=== PATIENT | male | born 1930 | race Caucasian/White ===

== ENCOUNTER 2016-06-23 19:00 | Emergency (ER) | payer MEDICARE, BC ==
[~2016-06-23] VITALS: Ht 172.7 cm; Wt 96.8 kg
[~2016-06-23 19:00] MED LIST: AMLO5TAB2 PO; ASPI81TA2 PO; BP MED; CARV6.25 PO; CETI10CA19 PO; CHOL200014 PO; CLOT15CR4 TOP; COLC0.6T70 PO; MENT1LOZ3; MIRA50TA PO; OMEP20CA10 PO; OXYB5TAB10 PO; POLY17PO6 PO; SENN-29 PO; SUCR1TAB20 PO; TRIA15OI6 TOP; [UNRECOGNIZED DRUG - CODE] TOP; amlodipine PO
--- OUTSIDE RECORDS SUMMARY | 2016-06-23 19:05 | XMS REPORT | Continuity of Care Document ---
Author Author [facility] Organization [facility] Address Unknown Phone Unavailable Allergies Active Description Code Type Severity Reaction Onset Reported/Identified Relationship to Patient Clinical Status Yes allopurinol derivatives NKMA Medium AZEGxwEmLzUcjbvKwKgAAg AZEGxwE Yes allopurinol derivatives NKMA Medium AZEGxwEmLzUcjbvKwKgAAg AZEGxwE Yes sulfa drugs NKMA N/A N/A 08/12/2013 Yes sulfa drugs NKMA N/A N/A 08/12/2013 Yes allopurinol derivatives NKMA Medium MVUHacTeYpIbco5jlMwKOk AZEGxwE 2013 Yes allopurinol derivatives NKMA Medium CVIBgaFaQlNkfx7sbHdJWo AZEGxwE 2013 Yes thiazide diuretics NKMA N/A [id number] 02/03/2014 Yes thiazide diuretics NKMA N/A [id number] 02/03/2014 Yes spironolactone NKMA N/A red skin and itching 02/15/2014 Yes spironolactone NKMA N/A red skin and itching 02/15/2014 Yes penicillin NKMA N/A [id number] 08/21/2014 Yes penicillin NKMA N/A [id number] 08/21/2014 Medications Medication Packaging Start Date Stop Date Route Dosage Sig Lactated Ringers Injection(Lactated Ringers Injection 1, 000 mL) 1,000 mL 201603/20/2016 IV 20 mL/hr, IV metoclopramide(Reglan) 1 mL 03/20/2016 03/20/2016 IV Push 5 mg 5 mg=1 mL, IV Push, q6hr, PRN: Nausea or Vomiting HYDROcodone-acetaminophen([place] 7.5 mg-325 mg oral tablet) 1 tabs 03/20/2016 03/20/2016 Oral 1 tabs, Oral, q4hr, PRN: Pain Moderate (4-6) morphine(morphine) 2 mL 03/20/2016 03/20/2016 IV Push 4 mg 4 mg= 2 mL, IV Push, q1hr, PRN: Pain Severe (7-10) nalOXone(Narcan) 1 mL 03/20/2016 03/20/2016 IV Push 0.4 mg 0.4 mg= 1 mL, IV Push, Once, PRN: Sedation ondansetron(Zofran) 2 mL 03/20/2016 03/20/2016 IV Push 4 mg 4 mg= 2 mL, IV Push, q6hr, PRN: Nausea or Vomiting Problems Date Dx Coded Attending Type Code Diagnosis Diagnosed By 08/22/2014 Isaac Vyas Final 278.00 OBESITY, UNSPECIFIED 08/22/2014 Isaac Vyas Final 338.29 Other chronic pain 08/22/2014 Isaac Vyas Final 401.9 UNSPECIFIED ESSENTIAL HYPERTENSION 08/22/2014 Isaac Vyas Final 428.0 CONGESTIVE HEART FAILURE, UNSPECIFIED 08/22/2014 Isaac Vyas Final 530.81 ESOPHAGEAL REFLUX 08/22/2014 Isaac Vyas Final 564.00 CONSTIPATION, UNSPECIFIED 08/22/2014 Isaac Vyas Reason 592.1 CALCULUS OF URETER 08/22/2014 Isaac Vyas Final 596.89 Other Specified Disorders of Bladder 08/22/2014 Isaac Vyas Final 715.36 OSTEOARTHROSIS, LOCALIZED, NOT SPECIFIED WHETHER PRIMARY OR SECONDARY, INVO 08/22/2014 Isaac Vyas Final 724.2 LUMBAGO 08/22/2014 Isaac Vyas Final V85.31 Body Mass Index 31.0-31.9, adult 08/22/2014 Isaac Vyas Reason 592.1 CALCULUS OF URETER 03/03/2015 Isaac Vyas Final D63.1 Anemia in chronic kidney disease 03/03/2015 Isaac Vyas Final E66.9 Obesity, unspecified 03/03/2015 Isaac Vyas Final E78.5 Hyperlipidemia, unspecified 03/03/2015 Isaac Vyas Final F17.220 Nicotine dependence, chewing tobacco , uncomplicated 03/03/2015 Isaac Vyas Final G89.29 Other chronic pain 03/03/2015 Isaac Vyas Final 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 03/03/2015 Isaac Vyas Final I50.9 Heart failure, unspecified 03/03/2015 Isaac Vyas Final K21.9 Gastro-esophageal reflux disease without esophagitis 03/03/2015 Isaac Vyas Final K59.00 Constipation, unspecified 03/03/2015 Isaac Vyas Final M54.5 Low back pain 03/03/2015 Isaac Vyas Final 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 , not elsewhere classified 03/03/2015 Isaac Vyas Reason N13.2 Hydronephrosis with renal and ureteral calculous obstruction 03/03/2015 Isaac Vyas Final N18.3 Chronic kidney disease, stage 3 ( moderate) 03/03/2015 Isaac Vyas Final Z68.34 Body mass index (BMI) 34.0-34.9, adult 03/03/2015 Isaac Vyas Final Z87.442 Personal history of urinary calculi 03/24/2016 Isaac Vyas Final F17.220 Nicotine dependence, chewing tobacco , uncomplicated 03/24/2016 Isaac Vyas Final 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 03/24/2016 Isaac Vyas Final I50.9 Heart failure, unspecified 03/24/2016 Isaac Vyas Final K21.9 Gastro-esophageal reflux disease without esophagitis 03/24/2016 Isaac Vyas Reason N13.5 Crossing vessel and stricture of ureter without hydronephrosis 03/24/2016 Isaac Vyas Final N18.3 Chronic kidney disease, stage 3 ( moderate) 03/24/2016 Isaac Vyas Final R80.8 Other proteinuria 03/24/2016 Isaac Vyas Final Z46.6 Encounter for fitting and adjustment of urinary device 03/24/2016 Isaac Vyas Final Z87.442 Personal history of urinary calculi Procedures Code Description [place] [address] Unlisted procedure, urinary system 08/21/2014 97387 Cystourethroscopy, with ureteroscopy and/or pyeloscopy; diagnostic.. 02/22/2015 68995 Cystourethroscopy, with insertion of indwelling ureteral stent (eg, Lopez 03/20/2016 Results Encounters ACCT No. Visit Date/Time Discharge Status Pt. Type Provider Facility Loc./Unit Complaint [id number] 03/20/2016 05:34:00 2016 14:29:00 DIS Outpatient Isaac Vyas [facility] on Isai AMINJ JACU Left uretheral stricture [id number] 02/22/2015 05:15:00 2014 11:45:00 DIS Outpatient Isaac Vyas [facility] on Isai J JACU Left ureteral stone [id number] 08/21/2014 05:12:00 2014 12:20:00 DIS Outpatient Isaac Vyas [facility] on Isai J JACU kidney stone [id number] 03/21/2016 05:16:13 Document Registration
[2016-06-23 19:07] VITALS: Ht 172.7 cm; Wt 96.8 kg
--- NOTE | 2016-06-23 21:07 | ERPDOC ---
Departure Disposition Decision Date: June 23, 2016 Disposition Decision Time: 23:11 Disposition: 01 DISCHARGED HOME, SELF-CARE Impression Impression Impression: Primary Impression: Viral URI with cough Additional Impression: UTI (urinary tract infection) Urinary tract infection type: acute cystitis Hematuria presence: with hematuria Qualified Codes: N30.01 - Acute cystitis with hematuria Severity: Moderate Condition: Stable Seen By: Mid-level only Referrals: LIDYA SERRANO DO (PCP) IRVING CONTRERAS MD (Family) Patient Instructions: Upper Respiratory Infection (ED), Urinary Tract Infection in Men (ED) Problems/Meds/Labs Reviewed?: Yes Medications reviewed and manag: Yes Additional Instructions: Your CXR did not show a pneumonia. Your CBC indicates a viral illness. Urine indicates a urinary tract infection. Take Levaquin 250mg once daily for 9 days for urinary tract infection. You may take benzonatate 200mg, take 1 tab, three times daily for cough. Follow treatment plan. Follow with your PCP for re-evaluation in next week, sooner if worsting symptoms. Follow up care ordered?: Yes Mental Status: Alert, Oriented Scripts Levofloxacin (Levaquin) 250 Mg Tablet 1 TAB-CAP PO DAILY for 9 Days Prov: JUAN LOPEZ 06/23/16 Benzonatate (Benzonatate) 200 Mg Capsule 1 CAP PO TID Y for COUGH for 10 Days, #30 CAP DO NOT BITE, CHEW, OR CRUSH Prov: JUAN LOPEZ [employer] 06/23/16 HPI - Cough/URI General Chief Complaint: Cough,Fever,Flu,URI Stated Complaint: COUGH, CONGESTION,DIFF BREATHING Time Seen by Provider: 21:03 Source: patient HPI - Cough/URI Initial Comments 86 YO M sent from [facility] for evaluation of cough and tachypnea. Patient says he started coughing this morning. Has coughed up some phlegm earlier today (does not know what color). Has continued to cough so went to [facility] this evening. [facility] called and said patient had RR of 32 for them so sent him to ED for further evaluation. Patient denies fever, chills, CP, SOA. Patient says that he has been urinating more frequency today which could be due to coughing so much. Associated Symptoms: cough, DENIES: chest pain/soreness, dizziness, earache, facial pain, fever/chills, lightheadedness, muscle aches, shortness of breath Allergies: Coded Allergies: Sulfa (Sulfonamide Antibiotics) (Verified Allergy, Mild, 06/23/16) Thiazides (Verified Allergy, Mild, RASH, 06/23/16) allopurinol (Verified Allergy, Mild, RASH, 06/23/16) spironolactone (Verified Allergy, Mild, ITCHING, 06/23/16) Past History Patient Surgical History EGD with colonoscopy 07/24/2014 at [facility] Tonsillectomy TURP Lithotripsy with ureteral stents Past Medical History Metabolic: hypercholesterolemia, hypertension Cardiac: CHF, DENIES: angina Respiratory: DENIES: COPD, asthma GI: constipation Male: BPH, UTI, kidney stones Neurological: DENIES: CVA, TIA, seizures Musculoskeletal: back pain, osteoarthritis Hematologic: anemia Psychological: DENIES: depression Surgical History General: EGD, colonoscopy, tonsils Reproductive/: TURP, other Family History Family PMH: FOUND: [place], cancer, other (noncontributory) Vaccines Hx Influenza Vaccination: Yes (2013) Hx Pneumococcal Vaccination: Yes (12/04/05) Hx Tetanus Diptheria: No (UNKNOWN) Social History Substance Use Type: does not use Alcohol Intake: none Current Occupational Status: retired Review of Systems Constitutional Constitutional: DENIES: chills, dizziness, fever, weakness Eyes General: DENIES: erythema, exudate Lids/Accessories: DENIES: erythema, swelling ENMT Ears: DENIES: pain Hearing: DENIES: hearing loss Sinuses: congestion, rhinorrhea Mouth/Throat: DENIES: sore throat Cardiovascular Cardiac: DENIES: chest pain, murmur Rhythm/Rate: DENIES: palpitations Pulmonary Respiratory: cough, see HPI, sputum, DENIES: dyspnea GI Upper Abdomen: DENIES: nausea, pain, vomiting Lower Abdomen: DENIES: diarrhea, pain General: DENIES: dysuria, pain Male: frequency Musculoskeletal General: DENIES: pain, tenderness Integumentary Skin: DENIES: color change, itching, rash Neurological General: DENIES: ataxia, change in strength, numbness, paralysis/paresis, weakness Psychiatric Psychiatric: DENIES: anxiety, depression, nervousness Physical Exam General General Nourishment: well nourished, well developed, no acute distress, adult General Body Habitus: well groomed Vitals and Pain Weight: Kilograms: 96.800 Height (feet): 5 Height (inches): 8.00 Triage Pain Scale: Eyes (brief) Eyes Brief: found: EOMI, PERRL ENMT (brief) ENMT Brief: FOUND: TM clear, TM good light reflex, mucosa moist, NOT FOUND: nasal exudate, nasal swelling, pharnyx erythema Neck (brief) Neck: FOUND: trachea midline, NOT FOUND: adenopathy, spasm, tenderness, thyromegaly Respiratory (brief) Respiratory: FOUND: clear all tamayo, equal bilaterally, symmetrical Cardiovascular (brief) Cardiac: FOUND: regular rate, regular rhythm Abdomen (brief) Abdominal Brief: FOUND: bowel normo active x4, soft, NOT FOUND: distended, tender Musculoskeletal (brief) Musculoskeletal Brief: NOT FOUND: deformity, tenderness Integumentary (brief) Integumentary Brief: FOUND: dry, pink, warm Neurologic (brief) Neurological Brief: FOUND: CN w/o gross def to obs, motor-no gross deficits, sensory-no gross deficits Psychiatric (brief) Psychiatric Brief: FOUND: alert, normal affect, oriented Differential Diagnoses Differential Diagnoses Considering: Acute Bronchitis, Pneumonia, Sinusitis, Viral Syndrome Progress Results/Orders Orders Procedure Category Date Status Time Cmp - Comprehensive LAB 06/23/16 Complete Metabolic 21:13 Probnp LAB 06/23/16 Complete 21:13 Cbc W/Auto LAB 06/23/16 Complete Diff-Reflex Manual 21:13 Troponin I W LAB 06/23/16 Complete Hemolysis Index 21:13 EKG EKG 06/23/16 Taken 21:13 Chest, Pa & Lateral RAD 06/23/16 Resulted 21:13 UA, LAB 06/23/16 Complete Dip&Micro(Complete) & 21:22 Levofloxacin PHA 06/23/16 Complete (Levaquin 500 Mg 23:15 Benzonatate (Tessalon PHA 06/23/16 Complete Perles 200 Mg) 23:15 Lab Results Laboratory Tests Test 06/23/16 21:22 06/23/16 21:28 Urine Collection Type Voided-not cc-midstr Urine Color Yellow Urine Turbidity Cloudy Urine pH 6.0 Urine Specific Maybee 1.020 Urine Protein 2+ Urine Glucose (UA) Negative Urine Ketones Negative Urine Blood 3+ Urine Nitrite Negative Urine Bilirubin Negative Urine Urobilinogen 0.2EU/DL Urine Leukocyte Esterase 3+ Urine RBC 20-30/HPF Urine WBC Tntc/HPF Urine Squamous Epithelial Cells None seen Urine Bacteria 1+ Urine Culture Indicated Cult not indicated White Blood Count 6.0T/MM3 Red Blood Count 3.83M/MM3 Hemoglobin 12.5GM/DL Hematocrit 38.4% Mean Corpuscular Volume 100.3UM3 Mean Corpuscular Hemoglobin 32.6UUG Mean Corpuscular Hemoglobin Concent 32.6GM/DL RDW Standard Deviation 51.7FL Platelet Count 119T/MM3 Mean Platelet Volume 7.8UM3 Immature Granulocyte % (Auto) 2.0% Neutrophils (%) (Auto) 60.5% Lymphocytes (%) (Auto) 18.8% Monocytes (%) (Auto) 10.6% Eosinophils (%) (Auto) 6.9% Basophils (%) (Auto) 1.2% Absolute Immature Granulocyte (auto 0.12T/MM3 Absolute Neutrophils (auto) 3.6T/MM3 Absolute Lymphocytes (auto) 1.1T/MM3 Absolute Monocytes (auto) 0.6T/MM3 Absolute Eosinophils (auto) 0.4T/MM3 Absolute Basophils (auto) 0.1T/MM3 Turbidity < 20 Sodium Level 142MEQ/L Potassium Level 4.7MEQ/L Chloride Level 103MEQ/L Carbon Dioxide Level 28MEQ/L Anion Gap 11MEQ/L Blood Urea Nitrogen 24.0MG/DL Creatinine 1.6MG/DL Glomerular Filtration Rate Calc 41 BUN/Creatinine Ratio 15RATIO Glucose Level 107MG/DL Calculated Osmolality 277MOSM/KG Calcium Level 8.4MG/DL Total Bilirubin 0.70MG/DL Icterus Index < 2 Aspartate Amino Transf (AST/SGOT) 17U/L Alanine Aminotransferase (ALT/SGPT) 30U/L Alkaline Phosphatase 67U/L Troponin I < 0.012ng/ml EG-Ayh-W-Type Natriuretic Peptide 632PG/ML Total Protein 6.7G/DL Albumin 3.5G/DL Globulin 3.2G/DL Albumin/Globulin Ratio 1.1RATIO Chemistry Specimen Hemolysis 17 Medications Current ED Medications Levofloxacin (LEVAQUIN 500 mg tablet) 500 mg O ONCE PO Last administered on t 23:18; Start 06/23/16 at 23:15; Stop 06/23/16 at 23:16; Status DC Benzonatate (TESSALON PERLES 200 mg) 200 mg O ONCE PO Last administered on 06/23t 23:19; Start 06/23/16 at 23:15; Stop 06/23/16 at 23:16; Status DC Progress Progress WBC 6.0 BUN 24 Creatinine 1.6 Trop ,0.012 Pro BNP 632 UA 3+ blood, LE +3, Tntc WBC, 1 + bacteria Patient has not been tachypneic in ED. SpO2 has been 96-97% on RA. I discussed labs, CXR and exam findings with patient and his daughter. Patient started on benzoate for cough for and Levaquin UT (with dosage adjustment for estimated CC). Patient and his daughter verbalized understanding of treatment plan, close follow up with PCP and return precautions. EKG EKG : Rate: 60-100 Rhythm: sinus [place]: normal QRS: normal Intervals: normal ST/T: normal Interpreted by: signing physician (Dr. Epps) Xray Xray : Xray: CXR PA/Lat (No acute findings, chronic scarring in LLL unchanged from 2015 (Dr. Epps)) JUAN LOPEZ APRN June 23, 2016 21:07
--- OUTSIDE RECORDS SUMMARY | 2016-06-23 21:11 | XMS REPORT | Continuity of Care Document ---
Author Author [facility] Organization [facility] Address Unknown Phone Unavailable Allergies Active Description Code Type Severity Reaction Onset Reported/Identified Relationship to Patient Clinical Status Yes allopurinol derivatives NKMA Medium AZEGxwEmLzUcjbvKwKgAAg AZEGxwE Yes allopurinol derivatives NKMA Medium AZEGxwEmLzUcjbvKwKgAAg AZEGxwE Yes sulfa drugs NKMA N/A N/A 08/12/2013 Yes sulfa drugs NKMA N/A N/A 08/12/2013 Yes allopurinol derivatives NKMA Medium TYFGihNlRjXyph5pqJnJQf AZEGxwE 2013 Yes allopurinol derivatives NKMA Medium ZXAAhnHiWmDgnt4miBhXZb AZEGxwE 2013 Yes thiazide diuretics NKMA N/A [id number] 02/03/2014 Yes thiazide diuretics NKMA N/A [id number] 02/03/2014 Yes spironolactone NKMA N/A red skin and itching 02/15/2014 Yes spironolactone NKMA N/A red skin and itching 02/15/2014 Yes penicillin NKMA N/A [id number] 08/21/2014 Yes penicillin NKMA N/A [id number] 08/21/2014 Medications Medication Packaging Start Date Stop Date Route Dosage Sig Lactated Ringers Injection(Lactated Ringers Injection 1, 000 mL) 1,000 mL 201603/20/2016 IV 20 mL/hr, IV metoclopramide(Reglan) 1 mL 03/20/2016 03/20/2016 IV Push 5 mg 5 mg=1 mL, IV Push, q6hr, PRN: Nausea or Vomiting HYDROcodone-acetaminophen([place] 7.5 mg-325 mg oral tablet) 1 tabs [...] Procedures Code Description [place] [address] Unlisted procedure, urinary system 08/21/2014 38923 Cystourethroscopy, with ureteroscopy and/or pyeloscopy; diagnostic.. 02/22/2015 00880 Cystourethroscopy, with insertion of indwelling ureteral stent (eg, Lopez 03/20/2016 Results Encounters ACCT No. Visit Date/Time Discharge Status Pt. Type Provider Facility Loc./Unit Complaint [id number] 03/20/2016 05:34:00 2016 14:29:00 DIS Outpatient Isaac Vyas [facility] on Isai AMINJ JACU Left uretheral stricture [id number] 02/22/2015 05:15:00 2014 11:45:00 DIS Outpatient Isaac Vyas [facility] on Isai J JACU Left ureteral stone [id number] 08/21/2014 05:12:00 2014 12:20:00 DIS Outpatient Isaac Vyas [facility] on Isai J JACU kidney stone [id number] 03/21/2016 05:16:13 Document Registration
--- NOTE | 2016-06-23 21:15 | NUR ---
UA PT ABLE TO URINATE A SMALL AMOUNT. CLOUDY, STRONG ODOR.
--- NOTE | 2016-06-23 21:20 | NUR ---
LAB LAB DRAWN BY WAITER/WAITRESS COUNTER
[2016-06-23 21:33] LABS: BASOPHILS # (AUTO) 0.1 T/MM3 (0-0.2); BASOPHILS % (AUTO) 1.2 % (0-2); EOSINOPHILS # (AUTO) 0.4 T/MM3 (0-0.5); EOSINOPHILS % (AUTO) 6.9 % (0-4); HCT - HEMATOCRIT 38.4 % (41-53); HGB - HEMOGLOBIN 12.5 GM/DL (13.5-17.5); IMMATURE GRANULOCYTE # (AUTO) 0.12 T/MM3 (0.00-0.03); LYMPHOCYTES # (AUTO) 1.1 T/MM3 (1-4.8); LYMPHOCYTES % (AUTO) 18.8 % (23-45); MEAN CORPUSCULAR HGB 32.6 UUG (26-34); MEAN CORPUSCULAR HGB CONC(MCHC 32.6 GM/DL (31-37); MEAN CORPUSCULAR VOLUME 100.3 UM3 (80-100); MEAN PLATELET VOLUME 7.8 UM3 (9.4-12.4); MONOCYTES # (AUTO) 0.6 T/MM3 (0-0.8); MONOCYTES % (AUTO) 10.6 % (0-9.0); NEUTROPHILS #(AUTO)-ABSOLUTE 3.6 T/MM3 (1.8-7.7); NEUTROPHILS % (AUTO) 60.5 % (33-66); RED BLOOD COUNT 3.83 M/MM3 (4.50-5.90)
[2016-06-23 21:36] LABS: BLOOD, URINE 3+ (NEGATIVE); COLOR,URINE YELLOW (YELLOW); LEUKOCYTE ESTERASE ,URINE 3+ (NEGATIVE); NITRITE,URINE NEGATIVE (NEGATIVE); UROBILINOGEN,URINE 0.2 EU/DL (NORMAL)
[2016-06-23 21:42] LABS: ALBUMIN 3.5 G/DL (3.5-5.0); ALBUMIN/GLOBULIN RATIO 1.1 RATIO (1.1-2.2); ALKALINE PHOSPHATASE 67 U/L (38-126); ALT (SGPT) 30 U/L (21-72); ANION GAP 11 MEQ/L (5-15); AST (SGOT) 17 U/L (17-59); BUN/CREATININE RATIO 15 RATIO (6-26); CALCIUM 8.4 MG/DL (8.4-10.2); CHLORIDE 103 MEQ/L (98-107); CO2 - CARBON DIOXIDE 28 MEQ/L (22-30); CREATININE 1.6 MG/DL (0.8-1.5); GLOMERULAR FILTRATION RATE 41; GLUCOSE 107 MG/DL (75-110); POTASSIUM 4.7 MEQ/L (3.6-5); SODIUM 142 MEQ/L (134-144); TOTAL PROTEIN 6.7 G/DL (6.3-8.2)
[2016-06-23 21:46] LABS: BACTERIA,URINE 1+ (NEGATIVE); RBC,URINE 20-30 /HPF (0-3); SQUAMOUS EPITHELIAL CELL,UR NONE SEEN; WBC,URINE TNTC /HPF (0-5)
[2016-06-23 21:54] LABS: PROBNP 632 PG/ML (0-175)
[2016-06-23] MEDS ORDERED: LEVOFLOXACIN 500 MG TABLET PO ONE (23:15)
[2016-06-23] MEDS ORDERED: BENZONATATE 200 MG CAPSULE PO ONE (23:15)
[2016-06-23] MEDS ORDERED: LEVO250T2 PO (23:16)
[2016-06-23] MEDS ORDERED: BENZ200C36 PO (23:16)
[2016-06-23 23:25] VITALS: BP 174/84; PULSE 84; RESP 20; TEMP 99.1; O2SAT 96
--- NOTE | 2016-06-23 23:25 | NUR ---
DEPART PT AND DAUGHTER ARE GIVEN DISMISSAL INSTRUCTIONS WITH VERBAL UNDERSTANDING. PT GIVEN SCRIPT X2. PT AND DAUGHTER ARE AMBULATORY TO ED REGISTRATION DESK
--- NOTE | 2016-06-24 08:02 | DI ---
INDICATION: ITS.REASON: cough PROCEDURE: CHEST 2-VIEWS UPRIGHT (PA \T\ LAT) Encounter: Initial COMPARISON: August 28, 2014 FINDINGS: Chronic area of scarring in the left midlung. No new infiltrates. There is no pleural effusion or pneumothorax. The heart size, mediastinal contours and pulmonary vascularity are within normal limits. IMPRESSION: Stable chest without acute cardiopulmonary disease. .
== END 2016-06-23 23:25 | disposition home or self-care (01) ==
LOC: ED 19:00
DX: J06.9 Acute upper respiratory infection, unspecified (principal); B97.89 Other viral agents as the cause of diseases classified elsewhere; N30.01 Acute cystitis with hematuria
CPT/HCPCS: 36415; 71020; 80053; 81001; 83880; 84484; 85025; 93005; 99283; A9270

== ENCOUNTER → 2016-07-22 | Outpatient (CLI) | payer MEDICARE, BC ==
[~2016-07-22] MED LIST changes: +BENZ200C36 PO; -BP MED; -CETI10CA19 PO; -COLC0.6T70 PO; +LEVO250T2 PO; -SENN-29 PO; -SUCR1TAB20 PO; -amlodipine PO
[2016-07-22 10:16] LABS: BASOPHILS # (AUTO) 0.1 T/MM3 (0-0.2); BASOPHILS % (AUTO) 1.1 % (0-2); EOSINOPHILS # (AUTO) 0.4 T/MM3 (0-0.5); EOSINOPHILS % (AUTO) 6.3 % (0-4); HCT - HEMATOCRIT 38.9 % (41-53); HGB - HEMOGLOBIN 12.4 GM/DL (13.5-17.5); IMMATURE GRANULOCYTE # (AUTO) 0.13 T/MM3 (0.00-0.03); IMMATURE GRANULOCYTE % (AUTO) 2.1 % (0.0-0.5); LYMPHOCYTES # (AUTO) 0.9 T/MM3 (1-4.8); MEAN CORPUSCULAR HGB 32.2 UUG (26-34); MEAN CORPUSCULAR HGB CONC(MCHC 31.9 GM/DL (31-37); MEAN PLATELET VOLUME 8.1 UM3 (9.4-12.4); MONOCYTES # (AUTO) 0.5 T/MM3 (0-0.8); MONOCYTES % (AUTO) 7.7 % (0-9.0); NEUTROPHILS #(AUTO)-ABSOLUTE 4.3 T/MM3 (1.8-7.7); NEUTROPHILS % (AUTO) 68.8 % (33-66); RED BLOOD COUNT 3.85 M/MM3 (4.50-5.90); RETICULOCYTE % 2.4 % (0.6-1.7); RETICULOCYTE HGB 36.7 PG (30.8-36.6); WBC - WHITE BLOOD COUNT 6.2 T/MM3 (4.5-11.0)
[2016-07-22 10:29] LABS: ALBUMIN 3.6 G/DL (3.5-5.0); ALBUMIN/GLOBULIN RATIO 1.3 RATIO (1.1-2.2); ALKALINE PHOSPHATASE 63 U/L (38-126); ALT (SGPT) 19 U/L (21-72); ANION GAP 9 MEQ/L (5-15); AST (SGOT) 14 U/L (17-59); BUN/CREATININE RATIO 16 RATIO (6-26); CHLORIDE 105 MEQ/L (98-107); CO2 - CARBON DIOXIDE 30 MEQ/L (22-30); CREATININE 1.6 MG/DL (0.8-1.5); GLOMERULAR FILTRATION RATE 41; GLUCOSE 89 MG/DL (75-110); LDH 432 U/L (313-618); POTASSIUM 4.7 MEQ/L (3.6-5); SODIUM 144 MEQ/L (134-144); TOTAL PROTEIN 6.3 G/DL (6.3-8.2)
== END ==
LOC: LAB 09:38
PROVIDERS: ATTEND Internal Medicine Hematology & Oncology
DX: D51.8 Other vitamin B12 deficiency anemias (principal); D63.1 Anemia in chronic kidney disease
CPT/HCPCS: 36415; 80053; 83615; 83735; 85025; 85045